=== PATIENT | male | born 1965 | race Caucasian/White ===

== ENCOUNTER 2017-09-21 05:50 | Day surgery (SDC) | payer OTHER ==
--- NOTE | 2017-09-20 23:03 | GHP ---
[f rep st] PREOP HISTORY AND PHYSICAL DATE OF ADMISSION: 09/21/2017 HISTORY OF PRESENT ILLNESS: Healthy, active _[id number] male, who presented to [facility] back in December of 2016 with a chief complaint of very arthritic great toe joints on both feet. The deformity has been progressive over time. He has tried orthotics, change in shoes, decreased activity, anti-inflammatories, all of which have failed to alleviate his symptoms. At this point, he wanted everything taken care of on a permanent basis. He runs, is a very athletic individual. PAST MEDICAL HISTORY: Consistent with hypertension, which is well controlled with medication. He has occasional back pain. He has had a right knee scope, and he had an orbital fracture. All surgeries were without complication or problems to anesthesia. MEDICATIONS: He takes glucosamine-chondroitin, multivitamin. ALLERGIES: He has no known drug allergies. SOCIAL HISTORY: Denies ever using tobacco products. Alcohol use is less than 2 ounces per week. REVIEW OF SYSTEMS: At his preop appointment, he was alert and oriented. He was not having any problems with headaches, vision, hearing, nasal or throat problems. Denies cardiac arrhythmias, chest pain, shortness of breath, GI distress, neurologic, dermatologic, or other musculoskeletal problems. PHYSICAL EXAM: VITAL SIGNS: Preoperatively, he had normal pulses, 2/4 on the dorsal, pedal pulse, as well as the posterior tibial artery. His capillary fill is less than 5 seconds to digits x10. NEUROLOGIC: Sharp, dull, light touch, proprioception all intact and symmetric to the digital level. SKIN: Normal temperature, texture, and turgor with normal hair distribution of both extremities. MUSCULOSKELETAL: His manual muscle testing was 5/5, the anterolateral and posterior muscle groups as well as intrinsic muscles on both feet. He had limited dorsiflexion on the great toes to less than 30 degrees bilateral. IMAGING: He did have x-rays taken previously. These revealed bony fragmentation on the dorsal aspect of the joint. The proximal phalanx had jammed and chipped off, and he has severe spurring on lateral radiograph of the 1st metatarsal. There is generalized joint space narrowing also in a slight elevatus on the oblique radiograph. This was on both feet, with the limitations and crepitation when placed in a corrected position. ASSESSMENT: Hallux valgus deformity, hallux limitus deformity, bilateral. PROCEDURE: Modified Salguero bunionectomy with stepdown osteotomy and screw fixation. At the preop appointment, we discussed risks and complications, including residual pain, delayed healing. Patient understood. Consent form was signed. He was given both oral and written postop instructions along with a prescription for Percocet 10/325, #30, 1 tab p.o. q.4-6h. p.r.n. pain. He will be followed up x3 days postop at [facility]. /[id number]/MODL MTDD
[2017-09-21] MEDS ORDERED: LIDOCAINE 1% 2 ML INJ ID PRN (06:02)
[2017-09-21] MEDS ORDERED: LR 1,000 ML IV ONE (06:02)
[2017-09-21 06:33] VITALS: PULSE 48
[2017-09-21] MEDS ORDERED: LIDOCAINE 1% 300 MG/30 ML SDV ONE (07:02)
[2017-09-21] MEDS ORDERED: BUPIVACAINE 0.25% 30 ML SDV ONE (07:02)
[2017-09-21] MEDS ORDERED: ceFAZolin 1 GM/5 ML SYR ONE ×2 (07:07→07:51)
[2017-09-21] MEDS ORDERED: MIDAZOLAM 2 MG/2 ML VIAL IVP ONE (07:09)
--- NOTE | 2017-09-21 07:10 | PDANEPAE ---
ANE Past Medical History - Cardiovascular History Hx Hypertension: No Hx Arrhythmias: No Hx Chest Pain: No Hx Coronary Artery / Peripheral Vascular Disease: No Hx CHF / Valvular Disease: No Hx Palpitations: No - Pulmonary History Hx COPD: No Hx Asthma/Reactive Airway Disease: No Hx Recent Upper Respiratory Infection: No Hx Oxygen in Use at Home: No Hx Sleep Apnea: Yes Sleep Apnea Screening Result - Last Documented: Positive Pulmonary History Comment: NORAH USES C-PAP INSTRUCTED TO BRING DOS - Neurologic History Hx Cerebrovascular Accident: No Hx Seizures: No Hx Dementia: No - Endocrine History Hx Diabetes: No - Renal History Hx Renal Disorders: No Renal History Comment: PREV KIDNEY STONES PASSED HIMSELF - Liver History Hx Hepatic Disorders: No - Neurological & Psychiatric Hx Hx Neurological and Psychiatric Disorders: No - Cancer History Hx Cancer: No - Congenital Disorder History Hx Congenital Disorders: No - GI History Hx Gastrointestinal Disorders: Yes Gastrointestinal History Comment: INTERMITTENT HEARTBURN USES ANTACID - Other Health History Other Health History: NEG - Chronic Pain History Chronic Pain: Yes (SONYA FEET) - Surgical History Prior Surgeries: RT KNEE SCOPE. ORIF RT EYE WITH RETAINED PLATE ANE Review of Systems Review of Systems: ANE Patient History - Allergies Allergies/Adverse Reactions: No Known Allergies Allergy (Unverified 06/19/17 10:21) - Home Medications Home Medications: Herbal Drugs DAILY 06/19/17 [Last Taken 09/19/17] - NPO status NPO Since - Liquids (Date): 09/20/17 NPO Since - Liquids (Time): 21:30 NPO Since - Solids (Date): 09/20/17 NPO Since - Solids (Time): 18:00 - Anes Hx Anes Hx: no prior problems - Smoking Hx Smoking Status: Never smoked - Alcohol Use Alcohol Use: None - Family Anes Hx Family Anes Hx: neg - N/A ANE Labs/Vital Signs - Vital Signs Blood Pressure: 128/92 Heart Rate: 48 Respiratory Rate: 18 O2 Sat (%): 96 Height: 180.34 cm Weight: 88.451 kg ANE Physical Exam - Airway Mallampati Score: Class 1 Mouth exam: normal dental/mouth exam - Pulmonary Pulmonary: no respiratory distress, no rales or rhonchi, clear to auscultation - Cardiovascular Cardiovascular: regular rate and rhythym, no murmur, rub, or gallop - ASA Status ASA Status: I ANE Anesthesia Plan Anesthesia Plan: GA with mask
--- NOTE | 2017-09-21 07:11 | PDHPUP ---
History & Physical Update H&P update statement: This history and physical update is based on an assessment of the patient which was completed after admission or registration (within 24 hours), but prior to the surgery/procedure.
[2017-09-21] MEDS ORDERED: ceFAZolin 2 GM in D5W 100 ML IV ONE (07:15)
[2017-09-21] MEDS ORDERED: MIDAZOLAM 2 MG/2 ML VIAL ONE (07:18)
[2017-09-21] MEDS ORDERED: fentaNYL 100 MCG/2 ML INJ ONE (07:20)
[2017-09-21] MEDS ORDERED: PROPOFOL/EMULSION 500 MG/50 ML BOTTLE IV ONE (07:20)
[2017-09-21] MEDS ORDERED: ceFAZolin 2 GM/SWFI 20 ML SYR IVP ONE (07:20)
[2017-09-21] MEDS ORDERED: ceFAZolin 2 GM/SWFI 2 GM/20 ML SYR IVP ONE (07:30)
[2017-09-21] MEDS ORDERED: PROPOFOL 200 MG/20 ML VIAL ONE ×2 (08:41→09:11)
[2017-09-21] MEDS ORDERED: OXYCODONE/APAP 5/325 TAB PO PRN (09:47)
[2017-09-21] MEDS ORDERED: NALOXONE HCL 0.4 MG/ML INJ IVP PRN (09:47)
[2017-09-21] MEDS ORDERED: ONDANSETRON 4 MG/2 ML VIAL IVP PRN (09:47)
[2017-09-21] MEDS ORDERED: ACETAMINOPHEN 500 MG TAB PO PRN (09:47)
[2017-09-21] MEDS ORDERED: PROMETHAZINE HCL 25 MG/ML INJ IVP PRN (09:47)
[2017-09-21] MEDS ORDERED: LR 500 ML IV PRN (09:47)
[2017-09-21] MEDS ORDERED: fentaNYL 100 MCG/2 ML INJ IVP PRN (09:47)
[2017-09-21] MEDS ORDERED: DEXAMETHASONE 4 MG/ML VIAL ONE ×2 (09:57)
--- NOTE | 2017-09-21 10:28 | POSTANESTH ---
Post Anesthetic Evaluation Cardiovascular Status: Normal, Stable, Similar to Pre-Op Cond Respiratory Status: Normal, Stable, Similar to Pre-op Cond. Level of Consciousness/Mental Status: Can Participate in Eval, Moderately Sleepy Pain Control: Adequate, Prn Tx Ordered Nausea/Vomiting Control: Adequate, Prn Tx Ordered Complications Possibly Related to Anesthesia: None Noted
[2017-09-21 10:51] VITALS: RESP 13; TEMP 96.8
--- NOTE | 2017-09-21 12:31 | GOP ---
[f rep st] OPERATIVE REPORT DATE OF OPERATION: 09/21/2017 SURGEON: David Andrade DPM ANESTHESIA: Carlos Manning MD, MAC plus a local infiltration of 10 cc of 0.25% Marcaine with epin ephrine and an additional 10 cc of 1% lidocaine plain in a Navarro-type block. A total of 5 cc of each of the injectables were utilized on each foot. PREOPERATIVE DIAGNOSIS: Hallux limitus deformity, right. Hallux valgus deformity, left. POSTOPERATIVE DIAGNOSIS: Hallux limitus deformity, right. Hallux valgus deformity, left. PROCEDURE PERFORMED: 1. Modified Salguero bunionectomy with osteotomy, step-down osteotomy, screw fixation on the right. 2. Modified Salguero bunionectomy with osteotomy, screw fixation on the left. 3. Bud osteotomy with screw fixation on the left. FINDINGS: SPECIMENS: There were no specimens for pathology. ESTIMATED BLOOD LOSS: Less than 10 cc. T DESCRIPTION OF PROCEDURE: The patient was taken to the operating room, placed in a supine position a fter local and MAC anesthesia and the Navarro-type block on both great toe joints. The right lower extr emity was elevated, prepped and draped in the usual sterile OR fashion achieving a sterile field abou t the entire distal aspect of the extremity. At this point, attention was directed to the dorsal aspe ct of the great toe joint where approximately a 3 inch linear incision was made medial to the extenso r hallucis longus tendon. Dissection was carried down to the level of the joint capsule. Care was t aken to preserve the neurovascular status to the area. Superficial vessels were clamped and bovied a s necessary. The capsule was entered via linear incision, there were multiple bony fragments noted d orsally on the great toe joint. All these were removed from the operative site. The top 40% of the metatarsal head was completely devoid of cartilage. There was severe osteophytes and bone built up o n top of the metatarsal as well as the dorsal aspect of the proximal phalanx at its base. All this jeet ne was removed utilizing a bone saw and rasped smooth utilizing a rotary bur. The area was flushed c opiously with dilute antibiotic solution. At this point, a 0.035 K-wire was placed through the metap hysis of the metatarsal orienting the K-wire such that it was dorsal medial to plantar lateral at abo ut a 50 degrees angle. This K-wire was utilized as an apex or a guidewire for the V or chevron osteot chuyita. At this point, a V or chevron osteotomy was carried out on the metatarsal head. Capital fragme nt was plantar flexed and moved slightly lateral. It was impacted upon itself and held fast by the s elma 0.035 K-wire as temporary fixation. Utilizing AO technique, a single 2.4 mm OsteoMed lag screw w as placed through the dorsal lateral wing of the osteotomy and retrograded back into the metatarsal s haft with excellent compression noted. The patient had excellent bone density intraoperatively. The K-wire was removed from the operative site. Redundant bone was removed dorsally and medially and faby ped smooth utilizing a rotary bur. The area was flushed copiously with dilute antibiotic solution. There was significant thickening of the joint capsule medially and all this thick fibrotic tissue was removed from the operative site also. Again, the area was flushed copiously with dilute antibiotic s olution. The great toe was taken through a range of motion and deemed to be anatomically aligned, arias d adequate dorsiflexion to 45 degrees of dorsiflexion intraoperatively. The capsule was then reapprox imated utilizing 3-0 Vicryl in a simple interrupted suture. The periosteum on the metatarsal was shane pproximated utilizing 4-0 Vicryl in a simple interrupted suture and subcu closure was carried out via 4-0 Vicryl in a horizontal mattress suture. Skin closure was carried out via 4-0 Prolene in a horiz ontal mattress suture. Adaptic, sterile 4x4s, Justen, and Coban were placed over the extremity. The t ourniquet was released. Total tourniquet time was less than 1 hour and it was at 225 mmHg. All digi ts immediately returned to a uniform and pink color with normal capillary fill. At this point, atten tion was directed to the left lower extremity. After elevation and exsanguination, tourniquet was in flated to 225 mmHg. Again, attention was directed to the dorsal medial aspect of the great toe joint where approximately 3-4 inch linear incision was made over the great toe. Again, care was taken to preserve the neurovascular status to the area and superficial vessels were clamped and bovied as nece ssary. The 1st intermetatarsal space was entered via sharp and blunt dissection. The adductor tendo n was identified and released sharply from its attachments into the base of the proximal phalanx. I could manually move the great toe into a corrected position very easily after release on the adductor tendon. The joint capsule as well as the proximal phalanx were entered via a linear incision. The capsule was reflected medially and laterally along with the periosteum of the distal metatarsal and b ase of the proximal phalanx. There was a small dorsal bony lip on the top of the metatarsal head and this was removed utilizing a bone saw and a large bony prominence on the medial aspect of the metata rsal head and it was removed utilizing a bone saw. A 0.035 K-wire was then placed through the metaph ysis of the metatarsal orienting the K-wire such that it would only slightly plantar flex the metatar everardo fragment once the osteotomy was carried out. A V or chevron-type osteotomy was carried out with the K-wire utilized as the guidewire for the V osteotomy with a slightly elongated dorsal wing. The metatarsal head was shifted laterally and only slightly planetary, impacted upon itself and held fast with the same 0.035 K-wire. Again, utilizing AO technique, a single 2.4 mm fully-threaded OsteoMed screw was placed through the dorsal wing and retrograded back into the metatarsal shaft at the osteot chuyita site dorsally. There was excellent compression noted intraoperatively as bone density was excelle nt intraoperatively. The K-wire was removed from the operative site. Redundant bone was removed medi ally and the entire capital metatarsal fragment was rasped smooth utilizing a rotary bur. The area w as flushed copiously with dilute antibiotic solution. The sesamoidal apparatus was inspected and it was deemed to be anatomically aligned with minimal degenerative changes. There was only significant thinning of the metatarsal cartilage on the dorsal aspect of the metatarsal head noted intraoperative ly. At this point, the great toe was taken through a range of motion. It was deemed that it was stil l in slight valgus position and a secondary osteotomy would be needed to straighten the great toe. A ttention was directed to the proximal phalanx where an oblique wedge osteotomy was carried out with t he apex of the wedge proximal lateral on the proximal phalanx. This wedge of bone was removed from t he operative site and a fracture reduction clamp was utilized to close the osteotomy which swung the great toe away from the 2nd. Again, utilizing AO technique, 2 parallel 2.4 mm OsteoMed screws were p laced intraoperatively perpendicular to the osteotomy site with excellent compression noted. The are a was flushed copiously with dilute antibiotic solution. The great toe was taken through a range of motion and deemed to be anatomically aligned. Redundant capsule was capsulotomized medially. The are a was flushed again copiously with dilute antibiotic solution. The joint capsule was reapproximated utilizing 3-0 Vicryl in a simple interrupted suture. Periosteum was reapproximated utilizing 4-0 Arnav ryl in a simple interrupted suture. Subcu closure was carried out via 4-0 Vicryl in a horizontal mat tress suture and skin closure was carried out via 4-0 Prolene in a horizontal mattress suture. Adapt ic, 4 x 4, Justen, and Coban were placed over the foot in moderate compression. Tourniquet was release d. All digits immediately returned to a uniform and pink color with normal capillary refill. The pa tiekatina went into recovery in a satisfactory state with all vital signs stable. His prognosis is very good for rapid recovery. He will be followed up x3 days postop at [facility], an d he was given my cell phone number for 24 hour call should he have any problems or questions postope ratively. COMPLICATION: There were no complications. DRAINS: No drains were placed in the operative site. /[id number]/MODL
[2017-09-21 13:22] VITALS: BP 121/89; O2SAT 95
== END 2017-09-21 13:44 | disposition home or self-care (01) ==
LOC: FSGY 05:50
PROVIDERS: ATTEND Podiatrist
PROC: 0SSM04Z Reposition Right Metatarsal-Phalangeal Joint with Internal Fixation Device, Open Approach (ICD-10-PCS; principal; 2017-09-21 07:15)
PROC: 0SSN04Z Reposition Left Metatarsal-Phalangeal Joint with Internal Fixation Device, Open Approach (ICD-10-PCS; principal; 2017-09-21 07:15)
DX: M20.12 Hallux valgus (acquired), left foot (principal); M20.11 Hallux valgus (acquired), right foot; M20.5X1 Other deformities of toe(s) (acquired), right foot; M20.5X2 Other deformities of toe(s) (acquired), left foot; M25.774 Osteophyte, right foot; I10 Essential (primary) hypertension; G47.33 Obstructive sleep apnea (adult) (pediatric); Z87.442 Personal history of urinary calculi
CPT/HCPCS: C1713; J0171; J0690; J1100; J2250; J2704; J3010